=== PATIENT | male | born 1985 | race African-American/Black ===

== ENCOUNTER 2021-04-29 16:49 | Emergency (ER) | payer OTHER ==
[2021-04-29 17:01] VITALS: BP 143/86; PULSE 90; TEMP 98.3
== END 2021-04-29 22:32 | disposition home or self-care (01) ==
LOC: JER 16:49
DX: H11.31 Conjunctival hemorrhage, right eye (principal)
CPT/HCPCS: 99283-25

== ENCOUNTER 2021-04-29 22:12 | Inpatient (IN) | payer OTHER ==
[2021-04-29 22:39] VITALS: BMI 26.2
[2021-04-30] MEDS ORDERED: MAG HYDROX/AL HYDROX/SIMETH 30 ML UNIT-DOSE CUP PO PRN (02:16)
[2021-04-30] MEDS ORDERED: IBUPROFEN 400 MG TABLET (FP) PO PRN (02:16)
[2021-04-30] MEDS ORDERED: BISMUTH SUBSALICYLATE 524 MG/30 ML PO PRN (02:16)
[2021-04-30] MEDS ORDERED: MAGNESIUM HYDROX 2400MG/30ML ORAL SUSPENSION 30 ML CUP PO PRN (02:16)
[2021-04-30] MEDS ORDERED: MAGNESIUM CITRATE 300 ML BOTTLE PO PRN (02:16)
[2021-04-30] MEDS ORDERED: METHOCARBAMOL 500 MG TABLET PO PRN (02:16)
[2021-04-30] MEDS ORDERED: MENTHOL/PHENOL 1 EACH UD MM PRN (02:16)
[2021-04-30] MEDS ORDERED: NICOTINE POLACRILEX 2 MG GUM BUC PRN (02:16)
[2021-04-30] MEDS ORDERED: ACETAMINOPHEN 325 MG TABLET (FP) PO PRN ×2 (02:16)
[2021-04-30] MEDS ORDERED: ONDANSETRON *ODT* 4 MG TABLET SL PRN (02:16)
[2021-04-30] MEDS ORDERED: IBUPROFEN 400 MG TABLET (FP) PO ONE (02:59)
[2021-04-30] MEDS: AMOX TR/POT CLAV 875MG/125MG TABLETS (FP) PO SCH ×2 (09:30→18:14)
[2021-04-30] MEDS: PRENATAL VITAMINS W/ FOLIC ACID TABLET (FP) PO SCH (11:28)
[2021-04-30] MEDS: NICOTINE 14 MG/24 HOURS TOPICAL PATCH TD SCH (11:32)
[2021-04-30 12:29] VITALS: TEMP 98.4
[2021-04-30 16:26] LABS: HEMATOCRIT 38.3 % (35.4-49); HEMOGLOBIN 12.7 GM/dL (11.7-16.9); MCH 29.5 pg (25.7-33.7); MCHC 33.1 g/dl (32.0-35.9); MEAN PLT VOLUME 8.8 fl (7.5-11.1); PLATELET COUNT 193 10^3/uL (134-434); RDW 13.7 % (11.9-15.9); WHITE BLOOD COUNT 4.3 K/mm3 (4.0-10.0)
[2021-04-30 16:28] LABS: CALCIUM 9.4 mg/dL (8.5-10.1)
[2021-04-30 16:29] LABS: BLOOD UREA NITROGEN 15.3 mg/dL (7-18)
[2021-04-30 16:34] LABS: BILIRUBIN,TOTAL 0.2 mg/dL (0.2-1); TOT PROT 6.6 g/dl (6.4-8.2)
[2021-04-30] MEDS ORDERED: PT OWN MED DRAWER 7, Y5N ONE (16:37)
[2021-04-30] MEDS ORDERED: THIAMINE HCL 100 MG TABLET (FP) PO SCH (22:00)
[2021-04-30] MEDS ORDERED: MELATONIN 5 MG TABLETS PO SCH (22:00)
[2021-05-01] MEDS: AMOX TR/POT CLAV 875MG/125MG TABLETS (FP) PO SCH ×2 (07:01→16:53)
[2021-05-01 07:09] VITALS: BP 132/56; PULSE 62
[2021-05-01] MEDS: NICOTINE 14 MG/24 HOURS TOPICAL PATCH TD SCH (10:23)
[2021-05-01] MEDS: PRENATAL VITAMINS W/ FOLIC ACID TABLET (FP) PO SCH (10:23)
[2021-05-01] MEDS ORDERED: NICOTINE 10 MG CARTRIDGE (INHALER) IH PRN (14:30)
== END 2021-05-01 17:35 | disposition home or self-care (01) | DRG 772 ==
LOC: YASAS 22:12 → Y3W 04-30 10:08
PROVIDERS: ADMIT Allergy & Immunology; ATTEND Allergy & Immunology
PROC: HZ42ZZZ Group Counseling for Substance Abuse Treatment, Cognitive-Behavioral (ICD-10-PCS; principal; 2021-04-30)
DX: F10.20 Alcohol dependence, uncomplicated (principal); F16.20 Hallucinogen dependence, uncomplicated; F12.20 Cannabis dependence, uncomplicated; F17.210 Nicotine dependence, cigarettes, uncomplicated; F19.282 Other psychoactive substance dependence with psychoactive substance-induced sleep disorder; H11.31 Conjunctival hemorrhage, right eye; Z56.0 Unemployment, unspecified; Z59.00 Homelessness unspecified
CPT/HCPCS: 36415; 80053; 85027; 86780; 93005; 93010; C9803; U0003; U0005

== ENCOUNTER 2021-05-09 01:51 | Inpatient (IN) | payer OTHER ==
[2021-05-09 04:08] VITALS: BMI 27.6
[2021-05-09] MEDS ORDERED: MAGNESIUM CITRATE 300 ML BOTTLE PO PRN (10:03)
[2021-05-09] MEDS ORDERED: MAG HYDROX/AL HYDROX/SIMETH 30 ML UNIT-DOSE CUP PO PRN (10:03)
[2021-05-09] MEDS ORDERED: LOPERAMIDE HCL 2 MG CAPSULE PO PRN (10:03)
[2021-05-09] MEDS ORDERED: ACETAMINOPHEN 325 MG TABLET (FP) PO PRN (10:03)
[2021-05-09] MEDS ORDERED: IBUPROFEN 400 MG TABLET (FP) PO PRN (10:03)
[2021-05-09] MEDS ORDERED: guaiFENesin 200 MG/10 ML 10 ML UNIT-DOSE CUPS PO PRN (10:03)
[2021-05-09] MEDS ORDERED: NICOTINE 10 MG CARTRIDGE (INHALER) IH PRN (10:03)
[2021-05-09] MEDS ORDERED: P-EPHED 60MG/TRIPROLIDI 2.5MG TABLET PO PRN (10:03)
[2021-05-09] MEDS ORDERED: MAGNESIUM HYDROX 2400MG/30ML ORAL SUSPENSION 30 ML CUP PO PRN (10:03)
[2021-05-09] MEDS ORDERED: TUBERCULIN PPD 5 TU/0.1ML VIAL ID ONE (13:28)
[2021-05-09] MEDS: hydrOXYzine PAMOATE 25 MG CAPSULE (FP) PO SCH ×3 (15:05→23:20)
[2021-05-09] MEDS: PRENATAL VITAMINS W/ FOLIC ACID TABLET (FP) PO SCH (15:06)
[2021-05-09] MEDS: NICOTINE 7 MG/24 HOURS TOPICAL PATCH TD SCH (15:06)
[2021-05-09] MEDS: MELATONIN 5 MG TABLETS PO SCH (23:20)
[2021-05-09] MEDS: THIAMINE HCL 100 MG TABLET (FP) PO SCH (23:20)
[2021-05-10] MEDS: hydrOXYzine PAMOATE 25 MG CAPSULE (FP) PO SCH ×5 (07:04→21:20)
[2021-05-10] MEDS: NICOTINE 7 MG/24 HOURS TOPICAL PATCH TD SCH (11:01)
[2021-05-10] MEDS: PRENATAL VITAMINS W/ FOLIC ACID TABLET (FP) PO SCH (11:01)
[2021-05-10] MEDS: MELATONIN 5 MG TABLETS PO SCH (21:20)
[2021-05-10] MEDS: THIAMINE HCL 100 MG TABLET (FP) PO SCH (21:20)
[2021-05-11] MEDS: hydrOXYzine PAMOATE 25 MG CAPSULE (FP) PO SCH ×5 (07:00→22:14)
[2021-05-11 07:13] VITALS: TEMP 98.4
[2021-05-11] MEDS: PRENATAL VITAMINS W/ FOLIC ACID TABLET (FP) PO SCH (11:16)
[2021-05-11] MEDS: NICOTINE 7 MG/24 HOURS TOPICAL PATCH TD SCH (11:16)
[2021-05-11] MEDS: MELATONIN 5 MG TABLETS PO SCH (22:14)
[2021-05-11] MEDS: THIAMINE HCL 100 MG TABLET (FP) PO SCH (22:14)
[2021-05-12] MEDS: hydrOXYzine PAMOATE 25 MG CAPSULE (FP) PO SCH ×5 (06:27→22:45)
[2021-05-12 08:15] VITALS: PULSE 55
[2021-05-12] MEDS: NICOTINE 7 MG/24 HOURS TOPICAL PATCH TD SCH (10:19)
[2021-05-12] MEDS: PRENATAL VITAMINS W/ FOLIC ACID TABLET (FP) PO SCH (10:19)
[2021-05-12] MEDS: MELATONIN 5 MG TABLETS PO SCH (22:45)
[2021-05-12] MEDS: THIAMINE HCL 100 MG TABLET (FP) PO SCH (22:45)
[2021-05-13] MEDS: hydrOXYzine PAMOATE 25 MG CAPSULE (FP) PO SCH ×2 (06:45→10:30)
[2021-05-13 10:19] VITALS: BP 118/62
[2021-05-13] MEDS: PRENATAL VITAMINS W/ FOLIC ACID TABLET (FP) PO SCH (10:30)
[2021-05-13] MEDS: NICOTINE 7 MG/24 HOURS TOPICAL PATCH TD SCH (10:30)
== END 2021-05-13 10:30 | disposition home or self-care (01) | DRG 772 ==
LOC: YASAS 01:51 → Y3W 10:42
PROVIDERS: ADMIT Allergy & Immunology; ATTEND Allergy & Immunology
PROC: HZ42ZZZ Group Counseling for Substance Abuse Treatment, Cognitive-Behavioral (ICD-10-PCS; principal; 2021-05-09)
DX: F10.20 Alcohol dependence, uncomplicated (principal); F16.20 Hallucinogen dependence, uncomplicated; F12.20 Cannabis dependence, uncomplicated; F17.210 Nicotine dependence, cigarettes, uncomplicated; Z91.19 Patient's noncompliance with other medical treatment and regimen
CPT/HCPCS: 36415; 86803; C9803; U0003; U0005